=== PATIENT | male | born 2000 | race African-American/Black ===

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

== ENCOUNTER 2024-12-21 09:38 | Emergency (ER) | payer SELFPAY ==
[~2024-12-21] VITALS: Ht 177.8 cm; Wt 72.5 kg
[2024-12-21 10:02] LABS: BASOPHILS % 0.8 % (0.0-2.0); EOSINOPHILS % 7.3 % (0.0-5.0); HEMATOCRIT. 42.4 % (42.0-52.0); HEMOGLOBIN. 13.5 g/dL (14.0-18.0); LYMPHOCYTES % 40.3 % (20.0-50.0); MEAN PLATELET VOLUME 9.4 fl (7.4-10.4); MONOCYTES % 9.0 % (2.0-8.0); NEUTROPHILS % 42.6 % (40.0-76.0); PLATELET 221 x1000/uL (130-400); RED BLOOD CELL COUNT 6.42 mill/uL (4.7-6.1); RED CELL DISTRIBUTION WIDTH 15.7 % (11.6-14.6)
[2024-12-21 10:04] LABS: ADD RBC MORPHOLOGY YES
[2024-12-21] MEDS ORDERED: ALBU90AE INH (10:11)
[2024-12-21] MEDS ORDERED: DEXAMETHASONE 1MG TABLET PO ONE (10:15)
[2024-12-21 10:21] VITALS: PULSE 87; RESP 20; O2SAT 94
[2024-12-21] MEDS: IPRATROPIUM BROMIDE (0.02%) 0.5MG/2.5ML NEB HHN SCH (10:21)
[2024-12-21] MEDS: ALBUTEROL (0.083%) 2.5MG/3ML NEB HHN SCH (10:21)
[2024-12-21] MEDS: DEXAMETHASONE 4MG TABLET PO NR (10:26)
[2024-12-21 10:32] VITALS: PULSE 71; RESP 18; O2SAT 100
[2024-12-21 10:36] LABS: PLATELET ESTIMATE NORMAL
[2024-12-21 10:42] VITALS: PULSE 85; RESP 18; O2SAT 100
[2024-12-21 11:13] VITALS: BP 115/78; PULSE 76; RESP 18; TEMP 36.7; O2SAT 98
== END 2024-12-21 11:20 | disposition home or self-care (01) ==
LOC: ER 09:38
DX: J98.01 Acute bronchospasm (principal); R06.02 Shortness of breath; R05.9 Cough, unspecified
CPT/HCPCS: 85025; 36415; 71045; 94640; 93005; 99291; J8540; Z7610 ×3; 94070; 94664; 98960

== ENCOUNTER 2025-02-01 10:44 | Emergency (ER) | payer MEDICAID ==
[~2025-02-01] VITALS: Ht 177.8 cm; Wt 73.0 kg
[~2025-02-01 10:44] MED LIST: ALBU90AE INH
[2025-02-01 10:50] VITALS: TEMP 37.1; O2SAT 98
[2025-02-01 11:33] VITALS: PULSE 90; RESP 18
[2025-02-01] MEDS: IPRATROPIUM/ALBUTEROL 0.5-3(2.5)MG/3ML NEB HHN ONE (11:33)
[2025-02-01] MEDS: PREDNISONE 20MG TABLET PO ONE (11:34)
[2025-02-01] MEDS ORDERED: P50 MT (12:41)
[2025-02-01] MEDS ORDERED: ALBU90AE INH (12:41)
[2025-02-01 13:04] VITALS: BP 105/72; PULSE 86; RESP 14; O2SAT 99
== END 2025-02-01 13:11 | disposition home or self-care (01) ==
LOC: ER 10:44
DX: J45.901 Unspecified asthma with (acute) exacerbation (principal); Z79.899 Other long term (current) drug therapy
CPT/HCPCS: 94640; 31720; 99283; J7512; Z7610 ×3